=== PATIENT | male | born 1965 | race Caucasian/White ===

== ENCOUNTER → 2018-07-19 | Outpatient (CLI) | payer BC ==
--- NOTE | 2018-07-19 17:35 | PCVCIMAG ---
EXAM: ABDOMINAL ULTRASOUND COMPLETE INDICATION: Abdominal pain FINDINGS: Gallbladder: No gallstones. No wall thickening or abnormal pericholecystic fluid. Liver: Diffusely increased echogenicity most compatible with diffuse fatty infiltration or parenchymal disease. Exam the liver somewhat technically limited because of this and the patient's body habitus. Bile ducts: No obvious intra or extra hepatic bile duct dilatation. The common bile duct is not well seen. Pancreas: Unremarkable where seen. Spleen: Normal in size measuring 12.4 cm in greatest dimension. No focal masses. Right kidney: No hydronephrosis. Length measures 11.5 cm. 1.5 x 1.6 x 1.8 cm benign cyst inferior pole. Left kidney: No hydronephrosis. Length measures 13.6 cm. Several benign cysts in the kidney the largest in the upper pole measuring 4.8 cm. Inferior vena cava: Normal in size where seen. Aorta: Normal in caliber where seen. IMPRESSION: Gallbladder is normal in appearance. No evidence of gallstones. Presumed diffuse fatty infiltration or parenchymal disease in the liver as described. Correlation with liver function studies may be of value. LOC:[id number]
--- NOTE | 2018-07-20 19:09 | PCVCIMAG ---
APPROVED REPORT Study performed: 07/19/2018 09:38:44 Exam: Stress Echocardiogram Indication: Hyperlipidemia, CAD s/p stent, Hypertension Stress Nurse: Tiffany Cruz RN Status: routine Ht: 6 ft 0 in HR: 92 bpm BP: 140/92 mmHg Rhythm: NSR Medical History Medical History: CAD s/p stent, Diabetes Procedure The patient underwent an Exercise Stress Test using the Duncan Protocol. Blood pressure, heart rate, and EKG were monitored. An Echocardiogram was performed by electronic security technician in four stages in quad fashion. At peak stress, four selected images were obtained and placed side by side with resting images for comparison. Stress Test Details Stress Test: Exercise stress testing was performed using a Duncan protocol. HR Resting HR: 92 bpmMax Heart Rate (APMHR): 168 bpm Max HR Achieved: 155 bpmTarget HR (85% APMHR): 142 bpm % of APMHR: 92 Recovery HR: 99 bpm HR response to stress: Normal HR response to stress BP Resting BP: 140/92 mmHg Max BP: 200/90 mmHg Recovery BP: 142/88 mmHg ECG Resting ECG: Sinus Rhythm Stress ECG: Sinus Rhythm Arrhythmia: PVC's Recovery ECG: Sinus Rhythm Clinical Reason for Termination: Maximal effort Exercise duration: 6 min 28 sec Highest Stage Achieved: Stage 3: 3.4 mph at 14% grade. Exercise capacity: 8.30 METs Overall Exercise Capacity for Age: Average Stress ECG Conclusion ECG: Non-ischemic Clinical: Non-ischemic Pre-Stress Echo The resting Echocardiogram showed normal left ventricular contractility with an estimated Ejection Fraction of about >55%. Normal wall motion in all segments on baseline images. Post-Stress Echo The stress Echocardiogram showed normal left ventricular contractility with an estimated Ejection Fraction of about 60-65%. Normal augmentation of wall motion in all segments on post stress images. Clinical No clinical or ECG evidence for ischemia. Conclusion Clinical Response: Non-ischemic Exercise Capacity: Average Stress ECG Response: Non-ischemic Stress Echo Images: Non-ischemic The left ventricle is normal in size and wall thickness in both the rest and stress images. Other Information Study Quality: Adequate <Conclusion> The left ventricle is normal in size and wall thickness in both the rest and stress images.
== END | disposition home or self-care (01) ==
LOC: PCVCIMAG 13:24
PROVIDERS: ATTEND Internal Medicine Cardiovascular Disease
DX: E11.9 Type 2 diabetes mellitus without complications (principal); N28.1 Cyst of kidney, acquired
CPT/HCPCS: 76700; 93325; 93351

== ENCOUNTER → 2018-11-08 | Outpatient (CLI) | payer BC, OTHER ==
--- NOTE | 2018-11-08 11:29 | PCVCIMAG ---
APPROVED REPORT Study performed: 11/08/2018 10:30:57 Exam: Stress Echocardiogram Indication: CAD, Stent, Dyspnea Patient Location: Echo lab Stress Nurse: Liss Oglesby RN Status: routine Ht: 6 ft 1 in HR: 88 bpm BP: 118/100 mmHg Rhythm: NSR Medical History Medical History: CAD s/p stent Procedure The patient underwent an Exercise Stress Test using the Duncan Protocol. Blood pressure, heart rate, and EKG were monitored. An Echocardiogram was performed by senior service technician in four stages in quad fashion. At peak stress, four selected images were obtained and placed side by side with resting images for comparison. Stress Test Details Stress Test: Exercise stress testing was performed using a Duncan protocol. HR Resting HR: 88 bpmMax Heart Rate (APMHR): 168 bpm Max HR Achieved: 153 bpmTarget HR (85% APMHR): 142 bpm % of APMHR: 91 Recovery HR: 99 bpm HR response to stress: Normal HR response to stress BP Resting BP: 118/100 mmHg Max BP: 200/98 mmHg Recovery BP: 168/98 mmHg BP response to stress: Normal blood pressure response to stress. ECG Resting ECG: Sinus Rhythm Stress ECG: Sinus Rhythm Recovery ECG: Sinus Rhythm Clinical Reason for Termination: Maximal effort Exercise duration: 5 min 25 sec Highest Stage Achieved: Stage 2: 2.5 mph at 12% grade. Exercise capacity: 7.00 METs Overall Exercise Capacity for Age: Poor Pre-Stress Echo The resting Echocardiogram showed normal left ventricular contractility with an estimated Ejection Fraction of about 55-60%. Normal wall motion in all segments on baseline images. Post-Stress Echo The stress Echocardiogram showed normal left ventricular contractility with an estimated Ejection Fraction of about 60-65%. Normal augmentation of wall motion in all segments on post stress images. Clinical No clinical or ECG evidence for ischemia. Conclusion Clinical Response: Non-ischemic Exercise Capacity: Below Average Stress ECG Response: Non-ischemic Stress Echo Images: Non-ischemic The left ventricle is normal in size and wall thickness in both the rest and stress images. Other Information Study Quality: Technically Limited <Conclusion> The left ventricle is normal in size and wall thickness in both the rest and stress images.
== END | disposition home or self-care (01) ==
LOC: PCVCIMAG 10:16
PROVIDERS: ATTEND Internal Medicine Cardiovascular Disease
DX: I25.10 Atherosclerotic heart disease of native coronary artery without angina pectoris (principal); R06.00 Dyspnea, unspecified; I10 Essential (primary) hypertension; E11.9 Type 2 diabetes mellitus without complications; G47.33 Obstructive sleep apnea (adult) (pediatric); R42 Dizziness and giddiness; R06.02 Shortness of breath; E66.9 Obesity, unspecified; R10.9 Unspecified abdominal pain; R07.9 Chest pain, unspecified; Z90.5 Acquired absence of kidney
CPT/HCPCS: 93325; 93351